=== PATIENT | male | born 1975 | race Caucasian/White ===

== ENCOUNTER 2018-02-21 13:30 | Outpatient (RCR) | payer OTHER, SELFPAY ==
--- NOTE | 2018-01-28 14:07 | HMH.PTOPEV ---
PT Outpatient Evaluation Rehab PT Outpatient Evaluation Start: 01/28/18 13:59 Freq: Status: Active Protocol: Document 01/28/18 13:59 CAROLINE (Rec: 01/28/18 14:07 CAROLINE [id number]) Electronically Signed By Delgado Quinn, PT 01/28/18 13:59 Outpatient Therapy Subjective History Subjective History Pt reports insidious onset LBP beginning ~3 months ago. Pt reports slightly L of midline LBP, no radicular s/s, however , reports mutliple episodes of lumbar radiculopathies over the lsat ~10yrs. Recent MRI has revealed lumbar disc protusion. Chief Complaint Pain Symptom Type Ache Sharp Dull Symptoms Relieved By Nothing Symptoms Aggravated By Prone Supine Prior Functional Limitations Sleeping Current Functional Limitations Sleeping Symptom Description Constant but Variable Level of pain today (0-10) 4 Pain scale - at its best (0-10) 4 Pain scale - at its worst (0-10) 6 Lumbopelvic Eval Posture Thoracic Spine Posture Standing Position Neutral Lumbar Spine Posture Standing Position Flattened Assistive device Assistive Devices None / NA Gait Observation General Gait Pattern Observation No Deviations/Normal Palapation tenderness right paraspinal tenderness Yes: 1-2/4 Lumbar/Sacral Palpation Findings Tenderness Trigger Point left paraspinal tenderness Yes: 3/4 Lumbar/Sacral Palpation Findings Tenderness Trigger Point Range of Motion Lumbar Spine Active Flexion Range of 0-90 Motion (degrees) Lumbar Spine Active Extension Range of 0-40 Motion (degrees) Left Lumbar Spine Lateral Flexion Active 0-40 Range of Motion (degrees) Right Lumbar Spine Lateral Flexion 0-40 Active Range of Motion (degrees) Lumbar Spine ROM Limitations Soft Tissue Tightness Manual Muscle Test Bilateral Knee Extension Strength Grade 5 Normal Knee Flexion Strength Grade 5 Normal Hip Flexion Strength Grade 5 Normal Hip External Rotation Strength Grade 5 Normal Hip Internal Rotation Strength Grade 5 Normal Gluteus Kelvin Strength Grade 5 Normal Extensor Hallucis Longus Strength Grade 5 Normal Ankle Dorsiflexion Strength Grade 5 Normal Gastronemius/Soleus Strength Grade 5 Normal DTR Rt Patellar 1+ Lt Patellar 1+ Rt Gastroc/Soleus 1+ Lt Gastroc/Soleus
== END 2018-02-21 13:35 | disposition home or self-care (01) ==
LOC: PT 13:30
PROVIDERS: Visit Provider Family Medicine
DX: M54.5 Low back pain (principal); M51.36 Other intervertebral disc degeneration, lumbar region; M51.26 Other intervertebral disc displacement, lumbar region; M47.816 Spondylosis without myelopathy or radiculopathy, lumbar region
CPT/HCPCS: 97010; 97012; 97014; 97035; 97110; 97140; 97163; G0283

== ENCOUNTER → 2018-03-08 11:19 | Outpatient (POV) | payer OTHER, SELFPAY ==
[2018-03-08 11:36] VITALS: BP 152/98; PULSE 76; RESP 18
--- NOTE | 2018-03-08 12:16 | HMH.PMCON ---
Assessment and Plan (1) Degenerative disc disease Current visit: Yes Status: Chronic Qualifiers: Spinal region: lumbar Qualified Code(s): M51.36 - Other intervertebral disc degeneration, lumbar region Category: Medical (2) Bulging disc Current visit: Yes Status: Chronic Category: Medical (3) Radiculopathy Current visit: Yes Status: Chronic Qualifiers: Spinal region: lumbar Qualified Code(s): M54.16 - Radiculopathy, lumbar region Category: Medical Code(s): M54.10 - Radiculopathy, site unspecified - Assessment and plan all Dx Assessment and Plan for all problems:: Schedule him for an L5-S1 lumbar epidural steroid injection. I believe it would be beneficial given his symptomology and pathology on his MRI patient is not on any anticoagulation therapy is continuing a home stretching regimen. I will follow-up with him after his injection and reassess his symptoms at that time. Dr. Mohan has reviewed this note and agrees with this plan of care. This note was dictated using voice recognition software and may contain errors or omissions HPI - Data of Consult Requesting Physician: Cinthya Zhang APRN Primary Care Provider: Derek Arriaga MD Family Provider: Derek Arriaga MD - Consult Narrative Reason for consult: Back pain, leg pain at times History of present illness: Mr. Leroy is a 43 year old male who presents today for consultation in regards to his low back pain. Patient states he has had his pain for quite some time however it is worsening. He states lying flat makes his pain worse while resting and walking decreases his pain. Patient rates his pain a 5 out of 10. Patient has completed physical therapy with no relief. He is continuing to the chiropractor with minimal relief. He is tried and failed anti-inflammatories along with other medications. Patient does have MRI showing L5-S1 pathology. Patient states that his pain is worse on the right side. Mostly in his low back and down his right leg at times CC: Cinthya Zhang APRN [facility] History I have reviewed the patient's past medical history: Yes Medical History: Denies:: Cancer, Diabetes Mellitus Type 1, Diabetes Mellitus Type 2, MRSA Amputation: No Fractures: No - *Social History Smoking Status: Current every day smoker Tobacco Type: cigarettes # Packs/Day (cigarettes): 1 Alcohol Intake: current Alcohol Intake Frequency:: other Occupational Status: other Housing: house Household Members: spouse Travel in the last 8 weeks: None - Psychiatric History Expresses thoughts of harming self/others: None Suicide Plan Description: No Plan Review of Systems - Review of Systems ROS General: no recent weight change, no fever, no sleep disturbances Respiratory: no cough, no shortness of air, no recurring pulmonary infections Cardiovascular/Peripheral Vascular: No chest pain, No palpitations, no edema, no shortness of breath. Gastrointestinal: no incontinence, normal bowel movements reported Genitourinary: no incontinence Musculoskeletal: Back pain Psychiatric: normal mood/ affect Neurological: [denies weakness in extremities], [denies balance issues] Meds Allergies Allergy/AdvReac Type Severity Reaction Status Date / Time No Known Allergies Allergy Unverified 01/26/17 14:25 Objective Vital signs: Pulse Resp BP 76 18 152/98 H 03/08/18 11:36 03/08/18 11:36 03/08/18 11:36 Narrative: Physical Exam General: Alert and oriented x3, no acute distress, pleasant and cooperative, [on room air] Lungs: Resps E/U, Symmetrical chest expansion, Eyes: PERRL Musculoskeletal: Flexion and extension of lumbar spine somewhat guarded secondary to pain, deep tendon reflexes normal, strength in upper and lower extremities [5/5], lightly antalgic gait noted, positive straight leg raise test on the right side at 30 degrees Neurological: 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
--- NOTE | 2018-03-08 12:19 | P.CONS_ITS ---
Assessment and Plan (1) Degenerative disc disease Current visit: Yes Status: Chronic Qualifiers: Spinal region: lumbar Qualified Code(s): M51.36 - Other intervertebral disc degeneration, lumbar region Category: Medical (2) Bulging disc Current visit: Yes Status: Chronic Category: Medical (3) Radiculopathy Current visit: Yes Status: Chronic Qualifiers: Spinal region: lumbar Qualified Code(s): M54.16 - Radiculopathy, lumbar region Category: Medical Code(s): M54.10 - Radiculopathy, site unspecified - Assessment and plan all Dx Assessment and Plan for all problems:: Schedule him for an L5-S1 lumbar epidural steroid injection. I believe it would be beneficial given his symptomology and pathology on his MRI patient is not on any anticoagulation therapy is continuing a home stretching regimen. I will follow-up with him after his injection and reassess his symptoms at that time. Dr. Mohan has reviewed this note and agrees with this plan of care. This note was dictated using voice recognition software and may contain errors or omissions HPI - Data of Consult Requesting Physician: Cinthya Zhang APRN Primary Care Provider: Derek Arriaga MD Family Provider: Derek Arriaga MD - Consult Narrative Reason for consult: Back pain, leg pain at times History of present illness: Mr. Leroy is a 43 year old male who presents today for consultation in regards to his low back pain. Patient states he has had his pain for quite some time however it is worsening. He states lying flat makes his pain worse while resting and walking decreases his pain. Patient rates his pain a 5 out of 10. Patient has completed physical therapy with no relief. He is continuing to the chiropractor with minimal relief. He is tried and failed anti-inflammatories along with other medications. Patient does have MRI showing L5-S1 pathology. Patient states that his pain is worse on the right side. Mostly in his low back and down his right leg at times CC: Cinthya Zhang APRN [facility] History I have reviewed the patient's past medical history: Yes Medical History: Denies:: Cancer, Diabetes Mellitus Type 1, Diabetes Mellitus Type 2, MRSA Amputation: No Fractures: No - *Social History Smoking Status: Current every day smoker Tobacco Type: cigarettes # Packs/Day (cigarettes): 1 Alcohol Intake: current Alcohol Intake Frequency:: other Occupational Status: other Housing: house Household Members: spouse Travel in the last 8 weeks: None - Psychiatric History Expresses thoughts of harming self/others: None Suicide Plan Description: No Plan Review of Systems - Review of Systems ROS General: no recent weight change, no fever, no sleep disturbances Respiratory: no cough, no shortness of air, no recurring pulmonary infections Cardiovascular/Peripheral Vascular: No chest pain, No palpitations, no edema, no shortness of breath. Gastrointestinal: no incontinence, normal bowel movements reported Genitourinary: no incontinence Musculoskeletal: Back pain Psychiatric: normal mood/ affect Neurological: [denies weakness in extremities], [denies balance issues] Meds Allergies Allergy/AdvReac Type Severity Reaction Status Date / Time No Known Allergies Allergy Unverified 01/26/17 14:25 Objective Vital signs: Pulse Resp BP 76 18
== END ==
PROVIDERS: PCP Family Medicine; Visit Provider Clinical Nurse Specialist Family Health
DX: M51.16 Intervertebral disc disorders with radiculopathy, lumbar region (principal)
CPT/HCPCS: 99202

== ENCOUNTER → 2018-04-19 10:08 | Outpatient (POV) | payer OTHER, SELFPAY ==
[2018-04-19 10:19] VITALS: BP 142/88; PULSE 80; RESP 18; O2SAT 98; BMI 26.4
--- NOTE | 2018-04-19 10:52 | HMH.PAINSOAP ---
[facility] Pain Management SOAP Note Subjective:: Patient is a pleasant 43-year-old white male who presents today for follow-up after lumbar epidural steroid injection. Patient is doing extremely well rating his pain a 0 out of 10. Patient states that he has had 90% of his symptoms relieved. Patient is continuing a home stretching program and is on anti-inflammatories. Patient would like to repeat this in a month to see if he can get added benefit. He states his pain does return at night on certain days. Patient is not on any anticoagulation therapy. ROS General: no recent weight change, no fever, no sleep disturbances Respiratory: no cough, no shortness of air, no recurring pulmonary infections Cardiovascular/Peripheral Vascular: No chest pain, No palpitations, no edema, no shortness of breath. Gastrointestinal: no incontinence, normal bowel movements reported Genitourinary: no incontinence Musculoskeletal: Back pain, leg pain Psychiatric: normal mood/ affect Neurological: [denies weakness in extremities], [denies balance issues] Objective:: Physical Exam General: Alert and oriented x3, no acute distress, pleasant and cooperative, [on room air] Lungs: Resps E/U, Symmetrical chest expansion, Eyes: PERRL Musculoskeletal: Flexion and extension of lumbar spine somewhat guarded secondary to pain, deep tendon reflexes normal, strength in upper and lower extremities [5/5], normal gait noted Neurological: speech clear, 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 Given the efficacy of the last one I do believe it would be beneficial for him. I will follow-up with him after this injection and reassess his symptoms at that time. Dr. Mohan has reviewed this note and agrees with this plan of care. This note was dictated using voice recognition software and may contain errors or omissions
== END ==
PROVIDERS: PCP Family Medicine; Visit Provider Clinical Nurse Specialist Family Health
DX: M51.16 Intervertebral disc disorders with radiculopathy, lumbar region (principal)
CPT/HCPCS: 99213

== ENCOUNTER → 2018-06-06 08:39 | Outpatient (POV) | payer OTHER, SELFPAY ==
[2018-06-06 09:07] VITALS: BP 114/80; PULSE 74; RESP 18; O2SAT 98; BMI 26.4
--- NOTE | 2018-06-06 09:34 | HMH.PAINSOAP ---
[facility] Pain Management SOAP Note Subjective:: Patient is a pleasant 43-year-old white male who presents today for follow-up after his second lumbar epidural steroid injection he rates his pain a 2 out of 10 and states he is doing extremely well he would like to move forward with his third injection. We also discussed potentially putting him on some anti-inflammatory medication. He is trying to stay as active as possible and continuing a home stretching routine. Patient and I discussed what our next move will be after injections. Patient states that his pain has had 80 to 90% relief for over 2 months. He is not on any anticoagulation therapy. ROS General: no recent weight change, no fever, no sleep disturbances Respiratory: no cough, no shortness of air, no recurring pulmonary infections Cardiovascular/Peripheral Vascular: No chest pain, No palpitations, no edema, no shortness of breath. Gastrointestinal: no incontinence, normal bowel movements reported Genitourinary: no incontinence Musculoskeletal: Back pain, leg pain at times Psychiatric: normal mood/ affect, Neurological: [denies weakness in extremities], [denies balance issues] Objective:: Physical Exam General: Alert and oriented x3, no acute distress, pleasant and cooperative, [on room air] Lungs: Resps E/U, Symmetrical chest expansion, Eyes: PERRL Musculoskeletal: Flexion and extension of lumbar spine somewhat guarded secondary to pain, deep tendon reflexes normal, strength in upper and lower extremities [5/5], slightly antalgic gait noted Neurological: speech clear, 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 I believe it would be beneficial for him. I will follow-up with the patient after his injection and reassess his symptoms at that time. He has been instructed to call the office if he has any issues prior to his next appointment also start him on diclofenac 75 mg [address] Mohan has reviewed this note and agrees with this plan of care. This note was dictated using voice recognition software and may contain errors or omissions
--- NOTE | 2018-06-06 09:37 | P.CONS_ITS ---
[facility] Pain Management SOAP Note Subjective:: Patient is a pleasant 43-year-old white male who presents today for follow-up after his second lumbar epidural steroid injection he rates his pain a 2 out of 10 and states he is doing extremely well he would like to move forward with his third injection. We also discussed potentially putting him on some anti- inflammatory medication. He is trying to stay as active as possible and continuing a home stretching routine. Patient and I discussed what our next move will be after injections. Patient states that his pain has had 80 to 90% relief for over 2 months. He is not on any anticoagulation therapy. ROS General: no recent weight change, no fever, no sleep disturbances Respiratory: no cough, no shortness of air, no recurring pulmonary infections Cardiovascular/Peripheral Vascular: No chest pain, No palpitations, no edema, no shortness of breath. Gastrointestinal: no incontinence, normal bowel movements reported Genitourinary: no incontinence Musculoskeletal: Back pain, leg pain at times Psychiatric: normal mood/ affect, Neurological: [denies weakness in extremities], [denies balance issues] Objective:: Physical Exam General: Alert and oriented x3, no acute distress, pleasant and cooperative, [on room air] Lungs: Resps E/U, Symmetrical chest expansion, Eyes: PERRL Musculoskeletal: Flexion and extension of lumbar spine somewhat guarded secondary to pain, deep tendon reflexes normal, strength in upper and lower extremities [5/5], slightly antalgic gait noted Neurological: speech clear, 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 I believe it would be beneficial for him. I will follow-up with the patient after his injection and reassess his symptoms at that time. He has been instructed to call the office if he has any issues prior to his next appointment also start him on diclofenac 75 mg [address] Mohan has reviewed this note and agrees with this plan of care. This note was dictated using voice recognition software and may contain errors or omissions
== END ==
PROVIDERS: PCP Family Medicine; Visit Provider Clinical Nurse Specialist Family Health
DX: M51.16 Intervertebral disc disorders with radiculopathy, lumbar region (principal)
CPT/HCPCS: 99212

== ENCOUNTER → 2018-07-18 14:54 | Outpatient (POV) | payer OTHER, SELFPAY ==
[2018-07-18 15:13] VITALS: BP 132/72; PULSE 85; RESP 18; O2SAT 98; BMI 25.7
--- NOTE | 2018-07-18 15:33 | HMH.PAINSOAP ---
[facility] Pain Management SOAP Note Subjective:: Patient is a pleasant 43-year-old white male who following up today for his lumbar epidural steroid injection of L4-L5. He has been treated for low back pain with lumbar radicular symptoms. The patient states that he had 80% relief with his last lumbar epidural injection, but states that he decided to go golfing and also lifted on a ATV trailer. After that, he reported having intense low back pain radiating into buttock area. The patient feels this pain is different from his typical back pain. He rates his pain a 3 out of 10 today. ROS General: no recent weight change, no fever, no sleep disturbances Respiratory: no cough, no shortness of air, no recurring pulmonary infections Cardiovascular/Peripheral Vascular: No chest pain, No palpitations, no edema, no shortness of breath. Gastrointestinal: no incontinence, normal bowel movements reported Genitourinary: no incontinence Musculoskeletal: Back pain Psychiatric: normal mood/ affect, [denies depression], [denies anxiety] Neurological: [denies weakness in extremities], [denies balance issues] Objective:: Physical Exam General: Alert and oriented x3, no acute distress, pleasant and cooperative, [on room air] Lungs: Resps E/U, Symmetrical chest expansion, Eyes: PERRL Musculoskeletal: Flexion and extension of lumbar spine somewhat guarded secondary to pain, deep tendon reflexes normal, strength in upper and lower extremities [5/5], normal gait noted. Positive compression test, positive Maribel test, positive Lucía test Neurological: speech clear, pillowcase turner equal, no gross sensory deficits Assessment:: Degenerative disc disease of lumbar spine with lumbar radiculopathy symptoms, sacroiliitis Plan:: Given the patient's new symptoms, I feel he would benefit from bilateral SI joint injections. The patient is continuing a home stretching program and NSAIDs. We will follow-up with him after the procedure. Is been instructed to call the office if he has any concerns prior to the next appointment. Dr. Mohan has reviewed this note and agrees with this plan of care. This note was dictated using voice recognition software and may contain errors or omissions
--- NOTE | 2018-07-18 15:36 | P.CONS_ITS ---
[facility] Pain Management SOAP Note Subjective:: Patient is a pleasant 43-year-old white male who following up today for his lumbar epidural steroid injection of L4-L5. He has been treated for low back pain with lumbar radicular symptoms. The patient states that he had 80% relief with his last lumbar epidural injection, but states that he decided to go golfing and also lifted on a ATV trailer. After that, he reported having intense low back pain radiating into buttock area. The patient feels this pain is different from his typical back pain. He rates his pain a 3 out of 10 today. ROS General: no recent weight change, no fever, no sleep disturbances Respiratory: no cough, no shortness of air, no recurring pulmonary infections Cardiovascular/Peripheral Vascular: No chest pain, No palpitations, no edema, no shortness of breath. Gastrointestinal: no incontinence, normal bowel movements reported Genitourinary: no incontinence Musculoskeletal: Back pain Psychiatric: normal mood/ affect, [denies depression], [denies anxiety] Neurological: [denies weakness in extremities], [denies balance issues] Objective:: Physical Exam General: Alert and oriented x3, no acute distress, pleasant and cooperative, [on room air] Lungs: Resps E/U, Symmetrical chest expansion, Eyes: PERRL Musculoskeletal: Flexion and extension of lumbar spine somewhat guarded secondary to pain, deep tendon reflexes normal, strength in upper and lower extremities [5/5], normal gait noted. 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 The patient is continuing a home stretching program and NSAIDs. We will follow-up with him after the procedure. Is been instructed to call the office if he has any concerns prior to the next appointment. Dr. Mohan has reviewed this note and agrees with this plan of care. This note was dictated using voice recognition software and may contain errors or omissions
== END ==
PROVIDERS: PCP Family Medicine; Visit Provider Clinical Nurse Specialist Family Health
DX: M51.16 Intervertebral disc disorders with radiculopathy, lumbar region (principal); M46.1 Sacroiliitis, not elsewhere classified
CPT/HCPCS: 99212

== ENCOUNTER → 2018-08-01 15:25 | Outpatient (POV) | payer OTHER, SELFPAY ==
[2018-08-01 15:44] VITALS: BP 126/78; PULSE 74; RESP 18; O2SAT 98; BMI 25.7
--- NOTE | 2018-08-01 15:52 | HMH.PAINSOAP ---
[facility] Pain Management SOAP Note Subjective:: Patient is a pleasant 43-year-old white male who is following up after last appointment. Patient was scheduled for bilateral SI joint injections, but he did cancel that appointment. Patient states the pain was better and I did not feel like I needed the injection at that time . The patient is here today for complaints of pain that he says is different from his previous pain at the last appointment. He says his pain is low back pain nonradiating. He rates his pain a 3 out of 10 today. The patient would like to try another epidural injection. He is continuing a home stretching program and NSAIDs. ROS General: no recent weight change, no fever, no sleep disturbances Respiratory: no cough, no shortness of air, no recurring pulmonary infections Cardiovascular/Peripheral Vascular: No chest pain, No palpitations, no edema, no shortness of breath. Gastrointestinal: no incontinence, normal bowel movements reported Genitourinary: no incontinence Musculoskeletal: Back pain Psychiatric: normal mood/ affect, [denies depression], [denies anxiety] Neurological: [denies weakness in extremities], [denies balance issues] Objective:: Physical Exam General: Alert and oriented x3, no acute distress, pleasant and cooperative, [on room air] Lungs: Resps E/U, Symmetrical chest expansion, Eyes: PERRL Musculoskeletal: Flexion and extension of lumbar spine somewhat guarded secondary to pain, deep tendon reflexes normal, strength in upper and lower extremities [5/5], normal gait noted Neurological: 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 The patient is not on any anticoagulation therapy. We will follow-up with him after the procedure and reassess his symptoms at that time. He is been instructed to call the office if he has any issues prior to his next appointment. Dr. Mohan has reviewed this note and agrees with this plan of care. This note was dictated using voice recognition software and may contain errors or omissions
--- NOTE | 2018-08-01 15:56 | P.CONS_ITS ---
[facility] Pain Management SOAP Note Subjective:: Patient is a pleasant 43-year-old white male who is following up after last appointment. Patient was scheduled for bilateral SI joint injections, but he did cancel that appointment. Patient states the pain was better and I did not feel like I needed the injection at that time . The patient is here today for complaints of pain that he says is different from his previous pain at the last appointment. He says his pain is low back pain nonradiating. He rates his pain a 3 out of 10 today. The patient would like to try another epidural injection. He is continuing a home stretching program and NSAIDs. ROS General: no recent weight change, no fever, no sleep disturbances Respiratory: no cough, no shortness of air, no recurring pulmonary infections Cardiovascular/Peripheral Vascular: No chest pain, No palpitations, no edema, no shortness of breath. Gastrointestinal: no incontinence, normal bowel movements reported Genitourinary: no incontinence Musculoskeletal: Back pain Psychiatric: normal mood/ affect, [denies depression], [denies anxiety] Neurological: [denies weakness in extremities], [denies balance issues] Objective:: Physical Exam General: Alert and oriented x3, no acute distress, pleasant and cooperative, [on room air] Lungs: Resps E/U, Symmetrical chest expansion, Eyes: PERRL Musculoskeletal: Flexion and extension of lumbar spine somewhat guarded secondary to pain, deep tendon reflexes normal, strength in upper and lower extr emities [5/5], normal gait noted Neurological: speech clear, industrial diamond polisher equal, no gross sensory deficits Assessment:: 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 The patient is not on any anticoagulation therapy. We will follow-up with him after the procedure and reassess his symptoms at that time. He is been instructed to call the office if he has any issues prior to his next appointment. Dr. Mohan has reviewed this note and agrees with this plan of care. This note was dictated using voice recognition software and may contain errors or omissions
== END ==
PROVIDERS: PCP Family Medicine; Visit Provider Clinical Nurse Specialist Family Health
DX: M51.16 Intervertebral disc disorders with radiculopathy, lumbar region (principal)
CPT/HCPCS: 99212

== ENCOUNTER → 2018-11-14 13:20 | Outpatient (POV) | payer OTHER, SELFPAY ==
[2018-11-14 13:35] VITALS: BP 113/69; PULSE 65; RESP 18; O2SAT 99; BMI 25.7
--- NOTE | 2018-11-15 08:38 | HMH.PAINSOAP ---
[facility] Pain Management SOAP Note Subjective:: Patient is a pleasant 43-year-old white male who is following up. Patient had a lumbar epidural steroid injection in the past and got 90% relief with it. Patient states his pain is beginning to return he rates it a 5 out of 10. Pain is mostly in his low back. He is continuing a home stretching program and NSAIDs is not on any anticoagulation therapy. Has had pain for over 6 months. He is done well with this in the past. ROS General: no recent weight change, no fever, no sleep disturbances Respiratory: no cough, no shortness of air, no recurring pulmonary infections Cardiovascular/Peripheral Vascular: No chest pain, No palpitations, no edema, no shortness of breath. Gastrointestinal: no incontinence, normal bowel movements reported Genitourinary: no incontinence Musculoskeletal: Back pain Psychiatric: normal mood/ affect Neurological: [denies weakness in extremities], [denies balance issues] Objective:: Physical Exam General: Alert and oriented x3, no acute distress, pleasant and cooperative, [on room air] Lungs: Resps E/U, Symmetrical chest expansion, Eyes: PERRL Musculoskeletal: Flexion and extension of lumbar spine somewhat guarded secondary to pain, deep tendon reflexes normal, strength in upper and lower extremities [5/5], slightly antalgic gait noted Neurological: speech clear, documentation improvement specialist equal, no gross sensory deficits Assessment:: Degenerative disc disease lumbar spine with lumbar radiculopathy Plan:: We will set him up for repeat L4-L5 lumbar epidural steroid injection given the efficacy of this in the past I believe it would be beneficial for him. Patient's been instructed to call the office if he has any issues prior to his next appointment. Dr. Mohan has reviewed this note and agrees with this plan of care. This note was dictated using voice recognition software and may contain errors or omissions [facility] History I have reviewed the patient's past medical history: Yes Medical History: Denies:: Cancer, Diabetes Mellitus Type 1, Diabetes Mellitus Type 2, Internal Pacemaker, MRSA, Seizures *Have you ever received a pneumonia vaccine?: No *Have you received a flu vaccine this season?: No Other Medical History: Denies: Blood Transfusion Reaction Other Surgeries: No: Pacemaker Amputation: No Fractures: No - *Social History Smoking Status: Never smoker Tobacco Type: cigarettes # Packs/Day (cigarettes): 1 Alcohol Intake: never Alcohol Intake Frequency:: 3 or more drinks per day *Occupational Status:: employed Housing: house Household Members: spouse *Travel in the last 8 weeks: None Family Hx:: Cancer, Heart Attack
== END ==
PROVIDERS: PCP Family Medicine; Visit Provider Clinical Nurse Specialist Family Health
DX: M51.16 Intervertebral disc disorders with radiculopathy, lumbar region (principal)
CPT/HCPCS: 99212

== ENCOUNTER → 2019-12-04 10:49 | Outpatient (POV) | payer BC, SELFPAY ==
[2019-12-04 11:34] VITALS: BP 115/85; PULSE 74; RESP 18; O2SAT 98; BMI 25.7
--- NOTE | 2019-12-04 12:23 | P.CONS_ITS ---
[facility] Pain Management SOAP Note Subjective:: Is a pleasant 44-year-old white male who presents today for follow-up. Patient had a lumbar epidural steroid injection at L4-L5 back in February and until recently has had good relief with it. Patient gets up to 80% relief of his symptomology up to 6 months. Patient would like to repeat his lumbar epidural steroid injection his pain is beginning to return. He rates his pain a 4 out of 10 mostly in his low back and down his leg. ROS General: no recent weight change, no fever, no sleep disturbances Respiratory: no cough, no shortness of air, no recurring pulmonary infections Cardiovascular/Peripheral Vascular: No chest pain, No palpitations, no edema, no shortness of breath. Gastrointestinal: no new onset incontinence, normal bowel movements reported Genitourinary: no new onset incontinence Musculoskeletal: Back pain, leg pain Psychiatric: normal mood/ affect Neurological: [denies new onset weakness in extremities], [denies new onset balance issues] Objective:: Physical Exam General: Alert and oriented x3, no acute distress, pleasant and cooperative, [on room air] Lungs: Resps E/U, Symmetrical chest expansion, Eyes: PERRL Musculoskeletal: Flexion and extension of lumbar spine somewhat guarded secondary to pain, deep tendon reflexes normal, strength in upper and lower extremities [5/5], slightly antalgic gait noted Neurological: speech clear, parliamentary counsel equal, no gross sensory deficits Assessment:: Degenerative disc disease lumbar spine lumbar radiculopathy Plan:: Set the patient up for an L4-L5 lumbar epidural steroid injection given the efficacy of this in the past I do believe it would benefit him. He has been instructed to call the office if he has any issues prior to his next appointment. Dr. Mohan has reviewed this note and agrees with this plan of care. This note was dictated using voice recognition software and may contain errors or omissions [facility] History I have reviewed the patient's past medical history: Yes Medical History: Denies:: Cancer, Diabetes Mellitus Type 1, Diabetes Mellitus Type 2, Internal Pacemaker, MRSA, Seizures *Have you ever received a pneumonia vaccine?: No *Have you received a flu vaccine this season?: No Other Medical History: Denies: Blood Transfusion Reaction Other Surgeries: No: Pacemaker Amputation: No Fractures: No - *Social History Smoking Status: Never smoker Tobacco Type: cigarettes # Packs/Day (cigarettes): 1 Alcohol Intake: current Alcohol Intake Frequency:: holidays/special occasions only *Occupational Status:: other Housing: house Household Members: spouse *Travel in the last 8 weeks: None Family Hx:: Cancer, Heart Attack
== END ==
PROVIDERS: PCP Family Medicine; Visit Provider Clinical Nurse Specialist Family Health
DX: M51.16 Intervertebral disc disorders with radiculopathy, lumbar region (principal)
CPT/HCPCS: 99212

== ENCOUNTER → 2019-12-20 12:51 | Outpatient (CLI) | payer BC, SELFPAY ==
--- NOTE | 2019-12-20 12:56 | MR_ITS ---
PROCEDURE: MR LUMBAR SPINE WO CON CLINICAL INDICATION: LOW BACK PAIN Pt c/o lbp with intermittent rt leg pain numbness and tingling . COMPARISON: No exams were available for comparison TECHNIQUE: Standard multiplanar multiecho sequences are performed without contrast. 3-D MIP and myelographic images are also rendered and reviewed FINDINGS: There is normal alignment. The spinal cord ends at the L1-L2 level. L1-L2 and L2-L3 have an unremarkable appearance. L3-L4: Mild degenerative disc disease with minimal bulging disc. L4-5: There is mild degenerative disc disease with bulging disc which is eccentric toward the left with small broad-based left paracentral and foraminal disc protrusion abutting the left L5 nerve root with left lateral recess narrowing and mild left foraminal narrowing.. There is a small annular fissure at this region centrally and toward the left. L5-S1: There is degenerative disc disease with a moderate sized right paracentral disc herniation with superior extrusion which is impinging upon the right L5 nerve root and also causing compromise of the medial aspect of the right L5-S1 foramen. This is also impinging upon the right S1 nerve root. The extruded portion of the disc measures 1.7 cm cephalad caudad and 0.9 cm AP. IMPRESSION: 1. L4-5: There is mild degenerative disc disease with bulging disc which is eccentric toward the left with small broad-based left paracentral and foraminal disc protrusion abutting the left L5 nerve root with left lateral recess narrowing and mild left foraminal narrowing.. There is a small annular fissure at this region centrally and toward the left. 2. L5-S1: There is degenerative disc disease with a moderate sized right paracentral disc herniation with superior extrusion which is impinging upon the right L5 nerve root and also causing compromise of the medial aspect of the right L5-S1 foramen. This is also impinging upon the right S1 nerve root. The extruded portion of the disc measures 1.7 cm cephalad caudad and 0.9 cm AP. Dictated by: Pedro Rosario MD 12/21/2019 12:21 Pedro Rosario MD in [place] 12/21/2019 12:21
== END ==
PROVIDERS: PCP Family Medicine; Visit Provider Clinical Nurse Specialist Family Health
DX: M54.5 Low back pain (principal)
CPT/HCPCS: 72148; 76376

== ENCOUNTER → 2020-01-08 11:27 | Outpatient (POV) | payer BC, SELFPAY ==
--- NOTE | 2020-01-08 12:49 | HMH.PAINSOAP ---
[facility] Pain Management SOAP Note Subjective:: Patient is a pleasant 44-year-old white male who presents today for follow-up after recent MRI. Patient does have an L4-L5 broad-based left paracentral and foraminal disc protrusion abutting the left L5 nerve root and also in impingement upon the right S1 nerve root at L5-S1. Patient and I discussed surgical consultation. He has had injection therapy and is pain relief from this has not lasted. He rates his pain today a 2 out of 10 stating that today is a good day for him. ROS General: no recent weight change, no fever, no sleep disturbances Respiratory: no cough, no shortness of air, no recurring pulmonary infections Cardiovascular/Peripheral Vascular: No chest pain, No palpitations, no edema, no shortness of breath. Gastrointestinal: no new onset incontinence, normal bowel movements reported Genitourinary: no new onset incontinence Musculoskeletal: Back pain, leg pain Psychiatric: normal mood/ affect Neurological: [denies new onset weakness in extremities], [denies new onset balance issues] Objective:: Physical Exam General: Alert and oriented x3, no acute distress, pleasant and cooperative, [on room air] Lungs: Resps E/U, Symmetrical chest expansion, Eyes: PERRL Musculoskeletal: Flexion and extension of lumbar spine somewhat guarded secondary to pain, deep tendon reflexes normal, strength in upper and lower extremities [5/5], antalgic gait noted Neurological: speech clear, training and development manager equal, no gross sensory deficits Assessment:: Degenerative disc disease lumbar spine lumbar radiculopathy, back pain, nerve impingement Plan:: We will send the patient to Dr. Wilson for consultation in regards to his MRI. I discussed with the patient that he will need to bring in disc of his MRI. Patient understands. I will follow-up with him after this reassess his symptoms at that time he has been instructed to call the office if he has any issues prior to his next appointment. Dr. Mohan has reviewed this note and agrees with this plan of care. This note was dictated using voice recognition software and may contain errors or omissions [facility] History I have reviewed the patient's past medical history: Yes Medical History: Denies:: Cancer, Diabetes Mellitus Type 1, Diabetes Mellitus Type 2, Internal Pacemaker, MRSA, Seizures *Have you ever received a pneumonia vaccine?: No *Have you received a flu vaccine this season?: No Other Medical History: Denies: Blood Transfusion Reaction Other Surgeries: No: Pacemaker Amputation: No Fractures: No - *Social History Smoking Status: Never smoker Tobacco Type: cigarettes # Packs/Day (cigarettes): 1 Alcohol Intake: current Alcohol Intake Frequency:: holidays/special occasions only *Occupational Status:: other Housing: house Household Members: spouse *Travel in the last 8 weeks: None Family Hx:: Cancer, Heart Attack
[2020-01-08 14:18] VITALS: BP 145/74; PULSE 71; RESP 18; O2SAT 98; BMI 25.7
== END ==
PROVIDERS: PCP Family Medicine; Visit Provider Clinical Nurse Specialist Family Health
DX: M51.16 Intervertebral disc disorders with radiculopathy, lumbar region (principal); M26.82 Posterior soft tissue impingement
CPT/HCPCS: 99212

== ENCOUNTER → 2020-05-09 10:25 | Outpatient (POV) | payer BC, SELFPAY ==
[2020-05-09 10:45] VITALS: BP 130/71; PULSE 90; RESP 18; O2SAT 98; BMI 26.4
--- NOTE | 2020-05-09 10:58 | P.CONS_ITS ---
[facility] Pain Management SOAP Note Subjective:: Patient is a pleasant 45-year-old white male who presents today for follow-up. Patient was seen by Dr. Wilson was determined he is not a candidate for surgery. He has an extremely focal right-sided back pain. It is not over his SI joint. He has positive facet loading lumbar spine. We discussed medial branch block. Patient and I had a long conversation in regards to potential neurotomy in the future. Patient's not on any anticoagulation therapy. He is failed other conservative measures of treatment he is not a surgical candidate. He may be a potential neurotomy candidate. He has no active infections. Rates his pain a 3 out of 10. ROS General: no recent weight change, no fever, no sleep disturbances Respiratory: no cough, no shortness of air, no recurring pulmonary infections Cardiovascular/Peripheral Vascular: No chest pain, No palpitations, no edema, no shortness of breath. Gastrointestinal: no new onset incontinence, normal bowel movements reported Genitourinary: no new onset incontinence Musculoskeletal: Back pain Psychiatric: normal mood/ affect Neurological: [denies new onset weakness in extremities], [denies new onset balance issues] Objective:: Physical Exam General: Alert and oriented x3, no acute distress, pleasant and cooperative, [on room air] Lungs: Resps E/U, Symmetrical chest expansion, Eyes: PERRL Musculoskeletal: Flexion and extension of lumbar spine somewhat guarded secondary to pain, deep tendon reflexes normal, strength in upper and lower extremities [5/5], slightly antalgic gait noted Neurological: speech clear, information resources manager equal, no gross sensory deficits Assessment:: Degenerative disc disease lumbar spine, back pain, facet arthropathy Plan:: We will schedule the patient for right-sided L4-L5 L5-S1 medial branch block. If the patient is successful he may be a neurotomy candidate. He is not on any anticoagulation therapy he has had over 3 months of pain. He is not a surgical candidate. He is failed all conservative measures including anti-in flammatories. I will follow-up with him after his medial branch block reassess his symptoms at that time he has been instructed to call the office if he has any issues prior to his next appointment. Dr. Mohan has reviewed this note and agrees with this plan of care. This note was dictated using voice recognition software and may contain errors or omissions [facility] History I have reviewed the patient's past medical history: Yes Medical History: Denies:: Cancer, Diabetes Mellitus Type 1, Diabetes Mellitus Type 2, Internal Pacemaker, MRSA, Seizures *Have you ever received a pneumonia vaccine?: Yes *Have you received a flu vaccine this season?: Yes Other Medical History: Denies: Blood Transfusion Reaction Other Surgeries: No: Pacemaker Amputation: No Fractures: No - *Social History Smoking Status: Never smoker Tobacco Type: cigarettes # Packs/Day (cigarettes): 1 Alcohol Intake: current Alcohol Intake Frequency:: holidays/special occasions only *Occupational Status:: employed Housing: house Household Members: spouse *Travel in the last 8 weeks: None Family Hx:: Cancer, Heart Attack
== END ==
PROVIDERS: Visit Provider Clinical Nurse Specialist Family Health
DX: M51.36 Other intervertebral disc degeneration, lumbar region (principal); M54.06 Panniculitis affecting regions of neck and back, lumbar region
CPT/HCPCS: 99212; G0463

== ENCOUNTER 2020-05-31 09:16 | Day surgery (SDC) | payer BC, SELFPAY ==
[2020-05-31 09:40] VITALS: BP 136/89; PULSE 79; RESP 18; TEMP 36.6; O2SAT 98; BMI 26.4
[2020-05-31 10:08] VITALS: PULSE 74
[2020-05-31 10:09] VITALS: BP 142/79; PULSE 85; RESP 18; O2SAT 98
--- NOTE | 2020-05-31 10:12 | P.PCN_ITS ---
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 He has increasing pain in the lower lumbar area. He has positive facet loading lumbar spine. Pain initially was on the right side. Today is on both sides. We will do bilateral lumbar medial branch block/facet joint injections of L4-5 and L5- S1. Procedure Details:: Lumbar medial branch block Informed consent was obtained and the risks and benefits of the procedure was explained to the patient. The back was prepped using ChloraPrep. The skin and subcutaneous tissues were anesthetized using lidocaine. I placed 22-gauge spinal needles into the facet joint/medial branches of L4-L5 and L5-S1 bilaterally. Needle placement was confirmed with dye. After this we injected 3 mL bupivacaine 0.25% and Depo-Medrol 20 mg into each facet joint/medial branch of L4-L5 and L5-S1 bilaterally. We used a total of 80 mg Depo-Medrol for both levels bilaterally. The patient tolerated the procedure well with no complications. Plan and Disposition:: We will follow up with him in 2 weeks to reevaluate his symptoms. If successful he may be a candidate for radiofrequency ablation to the facet joint/medial branches of L4-5 and L5-S1 bilaterally.
[2020-05-31 10:21] VITALS: BP 128/81; PULSE 68; RESP 18; O2SAT 98
== END 2020-05-31 10:21 | disposition home or self-care (01) ==
LOC: SC.PAINP 09:19
PROVIDERS: PCP Internal Medicine Adolescent Medicine; Visit Provider Anesthesiology
DX: M51.36 Other intervertebral disc degeneration, lumbar region (principal); M47.816 Spondylosis without myelopathy or radiculopathy, lumbar region; M54.06 Panniculitis affecting regions of neck and back, lumbar region
CPT/HCPCS: 64493; 64494; J1040

== ENCOUNTER → 2020-06-20 10:42 | Outpatient (POV) | payer BC, SELFPAY ==
[2020-06-20 11:06] VITALS: BP 133/88; PULSE 74; RESP 18; O2SAT 98; BMI 27.1
--- NOTE | 2020-06-20 11:21 | HMH.PAINSOAP ---
[facility] Pain Management SOAP Note Subjective:: Patient is a pleasant 45-year-old white male who presents today for follow-up after his bilateral medial branch block. Patient did not get any relief he rates his pain today a 3 out of 10. However it is mostly in his upper back. Patient describes it as worse at nighttime when he is trying to sleep. Patient does have some palpable trigger points in his upper lumbar paraspinous area. We discussed potential trigger point injections he is agreeable. He is tried and failed physical therapy and anti-inflammatory therapy. ROS General: no recent weight change, no fever, no sleep disturbances Respiratory: no cough, no shortness of air, no recurring pulmonary infections Cardiovascular/Peripheral Vascular: No chest pain, No palpitations, no edema, no shortness of breath. Gastrointestinal: no new onset incontinence, normal bowel movements reported Genitourinary: no new onset incontinence Musculoskeletal: Myofascial pain Psychiatric: normal mood/ affect Neurological: [denies new onset weakness in extremities], [denies new onset balance issues] Objective:: Physical Exam General: Alert and oriented x3, no acute distress, pleasant and cooperative, [on room air] Lungs: Resps E/U, Symmetrical chest expansion, Eyes: PERRL Musculoskeletal: Flexion and extension of thoracic and lumbar spine somewhat guarded secondary to pain, deep tendon reflexes normal, strength in upper and lower extremities [5/5], normal gait noted Neurological: speech clear, child & adolescent psychiatrist equal, no gross sensory deficits Assessment:: Degenerative disc disease lumbar spine lumbar facet arthropathy lumbar spondylosis Plan:: We will schedule the patient for trigger point injections of the upper lumbar paraspinous. I will follow-up with him afterwards reassess his symptoms at that time he has been instructed to call the office if he has any issues prior to his next appointment. Dr. Mohan has reviewed this note and agrees with this plan of care. This note was dictated using voice recognition software and may contain errors or omissions [facility] History I have reviewed the patient's past medical history: Yes Medical History: Denies:: Cancer, Diabetes Mellitus Type 1, Diabetes Mellitus Type 2, Internal Pacemaker, MRSA, Seizures *Have you ever received a pneumonia vaccine?: No *Have you received a flu vaccine this season?: No Other Medical History: Denies: Blood Transfusion Reaction Other Surgeries: No: Pacemaker Amputation: No Fractures: No - *Social History Smoking Status: Never smoker Tobacco Type: cigarettes # Packs/Day (cigarettes): 1 Alcohol Intake: never Alcohol Intake Frequency:: holidays/special occasions only *Occupational Status:: employed Housing: house Household Members: spouse *Travel in the last 8 weeks: None Family Hx:: Cancer, Heart Attack
== END ==
PROVIDERS: PCP Internal Medicine Adolescent Medicine; Visit Provider Clinical Nurse Specialist Family Health
DX: M51.36 Other intervertebral disc degeneration, lumbar region (principal); M54.06 Panniculitis affecting regions of neck and back, lumbar region; M47.816 Spondylosis without myelopathy or radiculopathy, lumbar region
CPT/HCPCS: 99212; G0463

== ENCOUNTER → 2020-07-01 11:38 | Outpatient (POV) | payer BC, SELFPAY ==
[2020-07-01 11:50] VITALS: BP 133/81; PULSE 81; RESP 18; O2SAT 96; BMI 25.1
--- NOTE | 2020-07-01 13:42 | P.CONS_ITS ---
[facility] Pain Management SOAP Note Subjective:: Patient is a pleasant 45-year-old white male presents today for follow-up. Patient is here with increased low back pain. Patient would like to discuss moving forward with an additional epidural. Patient has had this in the past with good relief. Up to 80% for up to 3 months. Rates pain a 5 out of 10 today. Patient is not on any anticoagulation therapy. We will move forward with scheduling a lumbar epidural steroid injection for him. ROS General: no recent weight change, no fever, no sleep disturbances Respiratory: no cough, no shortness of air, no recurring pulmonary infections Cardiovascular/Peripheral Vascular: No chest pain, No palpitations, no edema, no shortness of breath. Gastrointestinal: no new onset incontinence, normal bowel movements reported Genitourinary: no new onset incontinence Musculoskeletal: Back pain, leg pain Psychiatric: normal mood/ affect, Neurological: [denies new onset weakness in extremities], [denies new onset balance issues] Objective:: Physical Exam General: Alert and oriented x3, no acute distress, pleasant and cooperative, [on room air] Lungs: Resps E/U, Symmetrical chest expansion, Eyes: PERRL Musculoskeletal: Flexion and extension of lumbar spine somewhat guarded secondary to pain, deep tendon reflexes normal, strength in upper and lower extremities [5/5], slightly antalgic gait noted Neurological: speech clear, waiter/waitress buffet equal, no gross sensory deficits Assessment:: Degenerative disc disease lumbar spine lumbar radiculopathy, back pain Plan:: We will set the patient up for an L4-L5 lumbar epidural steroid injection. Patient's been instructed to call the office if he has any issues prior to his next appointment. Dr. Mohan has reviewed this note and agrees with this plan of care. This note was dictated using voice recognition software and may contain errors or omissions [facility] History I have reviewed the patient's past medical history: Yes Medical History: Denies:: Cancer, Diabetes Mellitus Type 1, Diabetes Mellitus Type 2, Internal Pacemaker, MRSA, Seizures *Have you ever received a pneumonia vaccine?: No *Have you received a flu vaccine this season?: Yes Other Medical History: Denies: Blood Transfusion Reaction Other Surgeries: No: Pacemaker Amputation: No Fractures: No - *Social History Smoking Status: Never smoker Tobacco Type: cigarettes # Packs/Day (cigarettes): 1 Alcohol Intake: never Alcohol Intake Frequency:: holidays/special occasions only *Occupational Status:: employed Housing: house Household Members: spouse *Travel in the last 8 weeks: None Family Hx:: Cancer, Heart Attack
== END ==
PROVIDERS: Visit Provider Clinical Nurse Specialist Family Health
DX: M51.16 Intervertebral disc disorders with radiculopathy, lumbar region (principal)
CPT/HCPCS: 99212; G0463

== ENCOUNTER 2020-07-12 10:45 | Day surgery (SDC) | payer BC, SELFPAY ==
[2020-07-12 11:00] VITALS: BP 129/94; PULSE 90; RESP 18; TEMP 36.7; O2SAT 99; BMI 26.4
[2020-07-12 11:30] VITALS: BP 152/107; PULSE 96; RESP 18; O2SAT 99
[2020-07-12 11:33] VITALS: BP 152/107; PULSE 96; RESP 18; O2SAT 99
--- NOTE | 2020-07-12 11:38 | P.PCN_ITS ---
- Procedure Date: 07/12/20 Time: 11:38 Anesthesiologist:: Canelo Mohan MD Complications:: None Pre-procedure Diagnosis:: Degenerative disc disease of lumbar spine with lumbar radiculopathy symptoms Post-procedure Diagnosis:: Same Indications for Procedure:: Patient is a pleasant 45-year-old white male who we are treating for low back pain with minimal radicular symptoms. He had medial branch blocks in the past which did not give him any benefit. He has had surgical evaluation and he is not a surgical candidate. He has had benefit from previous epidural steroid injections. Will do repeat lumbar epidural steroid injections today to see if this gives him relief of his pain symptoms. Procedure Details:: Informed consent was obtained and the risk and benefits of the procedure was explained to the patient. The patient was taken to the procedure room. The patient was placed prone on the procedure table. The patient was prepped and draped in sterile fashion. C-arm fluoroscopy was used to view the lumbar spine. Skin and subcutaneous tissues were anesthetized using lidocaine. I placed an 18-gauge epidural needle and advanced into the L4-L5 interspace using fluoroscopic guidance and [id number] to air. After confirmation of needle placement in the epidural space with dye I injected 2 mL of lidocaine 1.5% with Depo-Medrol 80 mg. Patient tolerated the procedure well with no complications. Plan and Disposition:: We will follow-up with him in 2 weeks. Will reevaluate symptoms at that time. If these do not provide him long-term relief we will plan on spinal cord stimulator trial. I given him information on the [employer] spinal cord stimulator system. This may be a treatment option for him long-term.
[2020-07-12 11:48] VITALS: BP 138/90; PULSE 80; RESP 18; O2SAT 99
== END 2020-07-12 11:49 | disposition home or self-care (01) ==
LOC: SC.PAINP 10:49
PROVIDERS: PCP Internal Medicine Adolescent Medicine; Visit Provider Anesthesiology
DX: M51.16 Intervertebral disc disorders with radiculopathy, lumbar region (principal)
CPT/HCPCS: 62323; J1040; Q9966

== ENCOUNTER → 2020-08-05 11:23 | Outpatient (POV) | payer BC, SELFPAY ==
[2020-08-05 11:45] VITALS: BP 130/73; PULSE 71; RESP 18; O2SAT 97; BMI 27.1
--- NOTE | 2020-08-05 13:20 | HMH.PAINSOAP ---
[facility] Pain Management SOAP Note Subjective:: Patient is a 45-year-old recently as result male who presents today for follow-up. He has been treated for degenerative disc disease lumbar spine with lumbar radiculopathy symptoms. Patient has managed with epidural Lateral thigh. Patient says that he did get excellent relief. His pain is a 2 out of 10 today. He says he got more relief to the left low back area than the right. He is having some residual pain to the right low back and right leg. Flat in the bed. He says standing or walking does improve the pain Simplot. He did discuss with Dr. Lang at his last visit with possible spinal cord stimulation trial. Patient is considering this but would like to speak with Dr. Emanuel before deciding. He does understand Dr. Emanuel will not be returning to the clinic until the first week of September. He says he will continue with home stretching and exercise until he is able to discuss a further plan of care with Dr. Emanuel. Review of Systems General: No recent weight changes, no fever, no sleep disturbances Respiratory: No cough, no shortness of air, no recurring pulmonary infections Cardiovascular/peripheral vascular: No chest pain, no palpitations, no edema, no shortness of breath Gastrointestinal: No new onset incontinence, normal bowel movements reported Genitourinary: No new onset incontinence Musculoskeletal: Low back pain worse to the right side, right leg pain Psychiatric: Normal mood/affect Neurological: [Denies weakness in extremities], [denies balance issues] Objective:: Physical exam General: Alert and oriented x3, no acute distress, pleasant and cooperative, [on room air] Lungs: Respirations even and unlabored, symmetrical chest expansion Eyes: PERRL Musculoskeletal: Flexion and extension of [] lumbar spine somewhat guarded secondary to pain, deep tendon reflexes normal, strength in upper and lower extremities [5/5], [abnormal gait noted] Neurological: Speech clear, transformer mechanic equal, no gross sensory deficit Assessment:: Degenerative disc disease lumbar spine with lumbar radiculopathy symptoms Plan:: We will plan for the patient to return to the clinic in 1 month for further discussion with Dr. CLARE Monique concerning possible spinal cord stimulation. He would like to talk to Dr. Emanuel before proceeding. He has been instructed to contact the clinic if he has any concerns for his next morning. Patient has been instructed to contact the clinic with any concerns before the next appointment. Dr. Mohan has reviewed this note and agrees with this plan of care. This note was dictated using voice recognition software and make contain errors or omissions. [facility] History I have reviewed the patient's past medical history: Yes Medical History: Denies:: Cancer, Diabetes Mellitus Type 1, Diabetes Mellitus Type 2, Internal Pacemaker, MRSA, Seizures *Have you ever received a pneumonia vaccine?: No *Have you received a flu vaccine this season?: No Other Medical History: Denies: Blood Transfusion Reaction Other Surgeries: No: Pacemaker Amputation: No Fractures: No - *Social History Smoking Status: Never smoker Tobacco Type: cigarettes # Packs/Day (cigarettes): 1 Alcohol Intake: never Alcohol Intake Frequency:: holidays/special occasions only *Occupational Status:: employed Housing: house Household Members: spouse *Travel in the last 8 weeks: None Family Hx:: Cancer, Heart Attack
== END ==
PROVIDERS: PCP Internal Medicine Adolescent Medicine; Visit Provider Clinical Nurse Specialist Family Health
DX: M51.16 Intervertebral disc disorders with radiculopathy, lumbar region (principal)
CPT/HCPCS: 99212; G0463

== ENCOUNTER → 2020-09-20 08:55 | Outpatient (POV) | payer BC, SELFPAY ==
--- NOTE | 2020-09-20 09:38 | HMH.PAINSOAP ---
[facility] Pain Management SOAP Note Subjective:: 45-year-old white male who we have been seeing for low back pain and right leg pain. He does have a herniated disc at L5-S1 along with degenerative changes throughout his lumbar spine. His radiculopathy symptoms bother him primarily at night. He is very active during the day. He has had multiple injections including epidural steroid injections and facet joint injections. He is only gotten short-term relief from these injections. He is also failed all other oral medications. He is not a surgical candidate. We talked about spinal cord stimulation. We will seek approval for a spinal cord stimulator trial to help him with his radicular symptoms down his right leg and his low back pain. Objective:: Alert and oriented x3 no acute distress. Patient does have an antalgic gait. Motor strength of the lower extremities is 5/5. There is no gross sensory deficit. Assessment:: Degenerative disc disease of lumbar spine with lumbar radiculopathy symptoms and herniated disc at L5-S1 Plan:: We will seek approval for spinal cord stimulator trial. We will do this in our [place] office. This will be with the [employer] system to help him with his low back pain and lumbar radicular symptoms. [facility] History Medical History: Denies:: Cancer, Diabetes Mellitus Type 1, Diabetes Mellitus Type 2, Internal Pacemaker, MRSA, Seizures *Have you ever received a pneumonia vaccine?: No *Have you received a flu vaccine this season?: No Other Medical History: Denies: Blood Transfusion Reaction Other Surgeries: No: Pacemaker Amputation: No Fractures: No - *Social History Smoking Status: Never smoker Tobacco Type: cigarettes # Packs/Day (cigarettes): 1 Alcohol Intake: never Alcohol Intake Frequency:: holidays/special occasions only *Occupational Status:: employed Housing: house Household Members: spouse *Travel in the last 8 weeks: Inside the [place] Family Hx:: Cancer, Heart Attack
[2020-09-20 09:40] VITALS: BP 126/74; PULSE 69; RESP 18; TEMP 36.3; O2SAT 98; BMI 27.1
== END ==
PROVIDERS: PCP Internal Medicine Adolescent Medicine; Visit Provider Anesthesiology
DX: M51.16 Intervertebral disc disorders with radiculopathy, lumbar region (principal)
CPT/HCPCS: 99212; G0463

== ENCOUNTER → 2021-06-10 09:34 | Outpatient (POV) | payer BC, SELFPAY | PROVIDERS: Visit Provider Dermatology | DX: Z00.00 Encounter for general adult medical examination without abnormal findings (principal) ==

== ENCOUNTER → 2022-09-17 11:04 | Outpatient (CLI) | payer OTHER, SELFPAY ==
[2022-09-17 11:11] LABS: Adenovirus F 40/41, stool Not Detected (NotDetected); Astrovirus Not Detected (NotDetected); Campylobacter Not Detected (NotDetected); Clostridium Difficile A/B, PCR Not Detected (NotDetected); Cryptosporidium Not Detected (NotDetected); Cyclospora Cayetanesis Not Detected (NotDetected); Entamoeba histolytica Not Detected (NotDetected); Enteroaggregative E coli Not Detected (NotDetected); Enteropathogenic E coli Not Detected (NotDetected); Enterotoxigenic E coli Not Detected (NotDetected); Giardia lamblia Not Detected (NotDetected); Norovirus Not Detected (NotDetected); Plesimonas Shigalloides, PCR Not Detected (NotDetected); Rotavirus A Not Detected (NotDetected); Salmonella, PCR Not Detected (NotDetected); Sapovirus Not Detected (NotDetected); Shiga-like toxin E coli Not Detected (NotDetected); Shigella Enterovasive E coli Not Detected (NotDetected); Vibrio Cholerae Not Detected (NotDetected); Vibrio, PCR Not Detected (NotDetected); Yersinia Entercolitica, PCR Not Detected (NotDetected)
== END ==
PROVIDERS: PCP Internal Medicine Adolescent Medicine; Visit Provider Nurse Practitioner Family
DX: K52.9 Noninfective gastroenteritis and colitis, unspecified (principal)
CPT/HCPCS: 87507